=== PATIENT | male | born 1990 | race Caucasian/White ===

== ENCOUNTER 2020-01-29 05:50 | Emergency (ER) | payer MEDICAID, OTHER ==
[~2020-01-29] VITALS: Ht 177.8 cm; Wt 86.2 kg
[~2020-01-29 05:50] MED LIST: FLUO-387 PO
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
[2020-01-29 05:56] VITALS: BP 130/100
--- NOTE | 2020-01-29 06:01 | NUR ---
PT AMBULATORY TO ROOM 4
--- NOTE | 2020-01-29 06:02 | NUR ---
Patrick mendoza in [facility] - 01/29/20 at 0602 by [place] PT TAKEN TO BED 4
--- NOTE | 2020-01-29 06:05 | NUR ---
Dr. Hinds examining patient.
[2020-01-29] MEDS ORDERED: fentaNYL 0.05 MG/ML VIAL IVP ONE ×2 (06:10→06:40)
--- NOTE | 2020-01-29 06:24 | NUR ---
PT MEDICATED WITH FENTANYL IVP. TOLERATED WELL. ELOYR
[2020-01-29] MEDS ORDERED: LIDOCAINE MPF 1% 10 MG/ML VIAL INJ ONE (06:35)
[2020-01-29] MEDS ORDERED: LIDOCAINE MPF 1% 5 ML ONE (06:35)
--- NOTE | 2020-01-29 06:47 | NUR ---
PT STATES PAIN IN PENIS IS CURRENTLY 10. ERMD MADE AWARE AND GAVE NEW ORDER FOR FENTANYL 0.05MG IVP. PT CONTINUES ON PERMIT AGENT. VSS.
--- NOTE | 2020-01-29 06:57 | NUR ---
Dr. Gorman examining patient.
--- NOTE | 2020-01-29 07:10 | NUR ---
Dr. Gorman & Dr. Ambrocio at bedside evaluating pt/suturing wound
[2020-01-29] MEDS ORDERED: BACITRACIN OINT 500 UNITS/GM PKT TP ONE (07:30)
[2020-01-29] MEDS ORDERED: IBUPROFEN 400 MG TAB PO ONE (07:30)
[2020-01-29 07:52] VITALS: BP 124/97
--- NOTE | 2020-01-29 07:54 | NUR ---
Patient discharged with v/s stable. Written and verbal after care instructions given and explained. Patient alert, oriented and verbalized understanding of instructions. Ambulatory with steady gait. All questions addressed prior to discharge. ID band removed. Patient advised to follow up with PMD. Rx of naprosyn, bactrim, bacitracin given. Patient educated on indication of medication including possible reaction and side effects. Opportunity to ask questions provided and answered. Homeless resource packet and sack lunch provided to patient.
== END 2020-01-29 07:54 | disposition home or self-care (01) ==
LOC: MED 05:50
DX: N47.1 Phimosis (principal); Z79.899 Other long term (current) drug therapy
CPT/HCPCS: 90715; 96374; 96375; 99284; J2001; J3010

== ENCOUNTER 2020-01-31 09:03 | Emergency (ER) | payer OTHER ==
[~2020-01-31] VITALS: Ht 175.3 cm; Wt 97.1 kg
[2020-01-31 09:11] VITALS: BP 134/86
[2020-01-31] MEDS ORDERED: NACL 0.9% 1,000 ML IV ONE ×2 (09:20→10:15)
[2020-01-31] MEDS ORDERED: KETOROLAC 30 MG/ML VIAL IVP ONE (09:20)
[2020-01-31] MEDS ORDERED: SULFAMETH/TRIMETH DS 800/160MG 1 TAB PO ONE (09:20)
[2020-01-31] MEDS ORDERED: CEPHALEXIN 500 MG CAP PO ONE (09:20)
[2020-01-31] MEDS ORDERED: BACITRACIN OINT 500 UNITS/GM PKT TP ONE (09:21)
[2020-01-31] MEDS ORDERED: ONDANSETRON 4 MG/2 ML VIAL IVP ONE (09:25)
--- NOTE | 2020-01-31 09:30 | NUR ---
AMBULATED TO BED.
--- NOTE | 2020-01-31 09:35 | NUR ---
DR VILLAGOMEZ AT BEDSIDE EVALUATING PT.
[2020-01-31 09:48] LABS: BASOPHILS # (AUTO) 0.1 K/uL (0.00-0.22); BASOPHILS % (AUTO) 0.9 % (0.0-2.0); EOSINOPHILS % (AUTO) 0.1 % (0.0-4.0); HEMATOCRIT 43.6 % (36-52); HEMOGLOBIN 15.4 g/dL (12.0-18.0); LYMPHOCYTES % (AUTO) 18.1 % (20.5-51.1); MEAN CORPUSCULAR HEMOGLOBIN 33 pg (27-31); MEAN CORPUSCULAR HGB CONC 35 g/dL (33-37); MEAN CORPUSCULAR VOLUME 93.4 fL (80-94); MONOCYTES # (AUTO) 0.5 K/uL (0.8-1.0); MONOCYTES % (AUTO) 4.4 % (1.7-9.3); NEUTROPHILS # (AUTO) 8.6 K/uL (1.8-7.7); NEUTROPHILS % (AUTO) 76.5 % (42.2-75.2); PLATELET COUNT (AUTO) 274 K/uL (140-450); RED BLOOD CELL COUNT(AUTO) 4.67 MIL/uL (4.20-6.10); RED CELL DISTRIBUTION WIDTH 13.6 % (11.6-13.7); WHITE BLOOD COUNT (AUTO) 11.2 K/uL (4.8-10.8)
[2020-01-31 10:06] LABS: ALBUMIN 3.5 g/dL (3.4-5.0); CARBON DIOXIDE 31.1 mmol/L (21-32); CREATININE 0.7 mg/dL (0.6-1.3); POTASSIUM 3.1 mmol/L (3.5-5.1); TOTAL BILIRUBIN 0.6 mg/dL (0.0-1.0)
--- NOTE | 2020-01-31 10:10 | NUR ---
PT C/O PENIAL PAIN 02/27 , DENIES PMHX NOR RECENT INTAKE OF MEDS . PT AWAKE ,ALERT , AFIBRILE , AMBULATORY WITH STEADY GAIT , SCE , CBS, FLATSOFT NABS.
[2020-01-31] MEDS ORDERED: POTASSIUM CHLORIDE 10 MEQ TABER PO ONE (10:15)
--- NOTE | 2020-01-31 10:34 | NUR ---
PT COMFORTABLE IN BED WITH SIDE RAILS UP X1 AND LOCK.
--- NOTE | 2020-01-31 11:48 | NUR ---
pt in bed c/o vomiting , gave vomit bag .aox 4. side rails up and lock.
[2020-01-31 12:17] VITALS: BP 130/80
--- NOTE | 2020-01-31 12:17 | NUR ---
Patient discharged with v/s stable. Written and verbal after care instructions given and explained regarding alcohol intoxication. Patient alert, oriented and verbalized understanding of instructions. Ambulatory with steady gait. All questions addressed prior to discharge. ID band removed. Patient advised to follow up with PMD. Rx of bactirm and naprosyn given. Patient educated on indication of medication including possible reaction and side effects. Opportunity to ask questions provided and answered.Pt walk out after recieving paper works ,security at bedside , charge nurse informed.
== END 2020-01-31 12:17 | disposition home or self-care (01) ==
LOC: MED 09:03
DX: F10.129 Alcohol abuse with intoxication, unspecified (principal); E87.6 Hypokalemia; R74.0 Nonspecific elevation of levels of transaminase and lactic acid dehydrogenase [LDH]; Z79.899 Other long term (current) drug therapy; Z48.00 Encounter for change or removal of nonsurgical wound dressing
CPT/HCPCS: 36415; 80053; 83690; 85025; 96361; 96374; 96375; 99284; G0482; J1885; J2405; J7030

== ENCOUNTER 2020-05-14 20:39 | Emergency (ER) | payer OTHER ==
[~2020-05-14] VITALS: Ht 177.8 cm; Wt 97.5 kg
[2020-05-14 20:40] VITALS: BP 136/85
[2020-05-14 20:51] VITALS: BP 136/85
== END 2020-05-14 20:51 | disposition left against medical advice (07) ==
LOC: MED 20:39
DX: R51 Headache (principal); Z53.21 Procedure and treatment not carried out due to patient leaving prior to being seen by health care provider

== ENCOUNTER 2020-05-19 20:49 | Inpatient (IN) | payer OTHER, SELFPAY ==
[~2020-05-19] VITALS: Ht 170.2 cm; Wt 91.6 kg
[2020-05-19 20:54] VITALS: BP 151/89
--- NOTE | 2020-05-19 21:14 | NUR ---
PT TAKEN TO BED 6
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
--- NOTE | 2020-05-19 21:23 | NUR ---
COVID AND KATHIA ANTIGEN SWAB COLLECTED AND HANDED TO LAB.
--- NOTE | 2020-05-19 21:23 | NUR ---
URINE SAMPLE COLLECTED AND HANDED TO LAB.
--- NOTE | 2020-05-19 21:30 | NUR ---
LAB AT BEDSIDE.
--- NOTE | 2020-05-19 21:33 | NUR ---
Dr. Hinds examining patient.
[2020-05-19] MEDS ORDERED: ONDANSETRON 4 MG/2 ML VIAL IVP ONE (21:40)
[2020-05-19] MEDS ORDERED: busPIRone 5 MG TAB PO ONE (21:40)
[2020-05-19] MEDS ORDERED: OLANZapine 5 MG TAB PO ONE (21:40)
[2020-05-19] MEDS ORDERED: NACL 0.9% 1,000 ML IV ONE (21:40)
[2020-05-19] MEDS ORDERED: buPROPion 150 MG TABER PO ONE (21:40)
[2020-05-19] MEDS ORDERED: PANTOPRAZOLE 40 MG INJ VIAL IVP ONE (21:40)
[2020-05-19] MEDS ORDERED: MIRTAZAPINE 15 MG TAB PO ONE (21:40)
[2020-05-19 21:49] LABS: BASOPHILS # (AUTO) 0.1 K/uL (0.00-0.22); BASOPHILS % (AUTO) 0.6 % (0.0-2.0); EOSINOPHILS # (AUTO) 0.1 K/uL (0-0.4); EOSINOPHILS % (AUTO) 1.1 % (0.0-4.0); HEMATOCRIT 48.1 % (36-52); HEMOGLOBIN 16.9 g/dL (12.0-18.0); LYMPHOCYTES # (AUTO) 2.3 K/uL (2.0-11.5); LYMPHOCYTES % (AUTO) 22.9 % (20.5-51.1); MEAN CORPUSCULAR HEMOGLOBIN 33 pg (27-31); MEAN CORPUSCULAR HGB CONC 35 g/dL (33-37); MEAN CORPUSCULAR VOLUME 93.4 fL (80-94); MONOCYTES # (AUTO) 0.7 K/uL (0.8-1.0); MONOCYTES % (AUTO) 7.2 % (1.7-9.3); NEUTROPHILS # (AUTO) 6.7 K/uL (1.8-7.7); NEUTROPHILS % (AUTO) 68.2 % (42.2-75.2); PLATELET COUNT (AUTO) 301 K/uL (140-450); RED BLOOD CELL COUNT(AUTO) 5.15 MIL/uL (4.20-6.10); RED CELL DISTRIBUTION WIDTH 12.3 % (11.6-13.7); WHITE BLOOD COUNT (AUTO) 9.8 K/uL (4.8-10.8)
[2020-05-19 21:50] LABS: APPEARANCE,URINE CLOUDY (CLEAR); BILIRUBIN,URINE 3+ (NEGATIVE); BLOOD, URINE NEGATIVE (NEGATIVE); COLOR,URINE BROWN (YELLOW); LEUKOCYTE ESTERASE ,URINE NEGATIVE (NEGATIVE); NITRITE, URINE NEGATIVE (NEGATIVE); UGLUCOSE NEGATIVE (NEGATIVE)
--- NOTE | 2020-05-19 21:55 | NUR ---
CALLED JOURNEYMAN LEVEL ACOUSTIC ANALYST FOR PO MEDS, CURRENTLY NONE ARE IN EMERGENCY DEPARTMENT.
[2020-05-19 22:03] LABS: ANION GAP 17.5 (8-16); ASPARTATE AMINOTRANSFERASE 113 U/L (15-37); CARBON DIOXIDE 21.7 mmol/L (21-32); CHLORIDE 99 mmol/L (98-107); GFR ARICAN-AMERICAN 113 mL/min (>90); GLUCOSE 149 mg/dL (74-106); POTASSIUM 3.2 mmol/L (3.5-5.1); SODIUM SERUM 135 mmol/L (136-145); TOTAL BILIRUBIN 0.8 mg/dL (0.0-1.0); UREA NITROGEN, BLOOD 15 mg/dL (7-18)
[2020-05-19 22:04] LABS: SALICYLATE < 2.8 mg/dL (2.8-20.0)
[2020-05-19 22:05] LABS: ACETAMINOPHEN < 0.5 ug/ml (10-30)
[2020-05-19 22:06] LABS: BARBITURATE, URINE NEGATIVE ng/ml (NEG <=200); BENZODIAZEPINE, URINE POSITIVE ng/mL (NEG <=200); CANNABINOID, URINE POSITIVE ng/mL (NEG <=50); COCAINE, URINE NEGATIVE ng/mL (NEG <=300); PHENCYCLIDINE SCREEN,URINE NEGATIVE ng/mL (NEG <=25)
[2020-05-19 22:07] LABS: OPIATE, URINE NEGATIVE ng/mL (NEG <=2000)
[2020-05-19] MEDS ORDERED: POTASSIUM CHLORIDE 10 MEQ TABER PO ONE (22:10)
--- NOTE | 2020-05-19 22:11 | NUR ---
TELEPSYCH INITIATED PER DR. VILLAGOMEZ
[2020-05-19 22:45] LABS: RBC,URINE 0-5 /HPF (0-5); WBC,URINE 0-5 /HPF (0-5)
--- NOTE | 2020-05-19 23:10 | NUR ---
TELEPSYCH DOCTOR SPEAKING WITH PATIENT VIA REMOTE COMMUNICATION
--- NOTE | 2020-05-19 23:23 | NUR ---
PT SLEEPING IN BED, LOCKED AND IN LOWEST POSITION,HOB ELEVATED, SIDE RAIL X2 . VISIBLE RISE AND FALL OF CHEST , RR EVEN AND UNLABORED. SI PRECAUTIONS IN PLACE.
--- NOTE | 2020-05-20 00:58 | NUR ---
[place] [facility] AT BEDSIDE
--- NOTE | 2020-05-20 01:00 | NUR ---
[facility] faxed packet to deisgnated facilities [facility] At this time , there are no beds available , will endorsed to AM shift to continue to look for placement.
--- NOTE | 2020-05-20 01:12 | NUR ---
PT PLACED ON A 5150 HOLD BY ÁLVARO DOW
--- NOTE | 2020-05-20 02:26 | NUR ---
pt sleeping in bed, locked and in lowest position, rr even and unlabored, visible rise and fall of chest, arousable to verbal stimulation. Hob elevated, side rail x2 for pt safety. SI precautions in place. No acute distress noted at this time.
--- NOTE | 2020-05-20 04:01 | NUR ---
pt sleeping in bed, locked and in lowest position, rr even and unlabored, visible rise and fall of chest. No acute distress noted at this time. SI precautions in place.
--- NOTE | 2020-05-20 06:33 | NUR ---
pt sleeping in bed, locked and in lowest position, visible rise and fall of chest. SI precautions in place. No acute distress noted at this time.
[2020-05-20] MEDS ORDERED: KCL 20 MEQ/WATER INJ PREMIX 200 ML IV PRN (06:55)
[2020-05-20] MEDS ORDERED: POTASSIUM CHLORIDE 10 MEQ TABER PO PRN (06:55)
[2020-05-20] MEDS ORDERED: HYDROcodone/APAP 5/325 MG 1 TAB TAB PO PRN (06:55)
[2020-05-20] MEDS ORDERED: ZOLPIDEM 5 MG TAB PO PRN (06:55)
[2020-05-20] MEDS ORDERED: MAG SULF 2000 MG/WATER PREMIX 50 ML IV PRN (06:55)
[2020-05-20] MEDS ORDERED: MAGNESIUM OXIDE 400 MG TAB PO PRN (06:55)
[2020-05-20] MEDS ORDERED: IBUPROFEN 400 MG TAB PO PRN (06:55)
[2020-05-20] MEDS ORDERED: ONDANSETRON 4 MG/2 ML VIAL IVP PRN (06:55)
[2020-05-20] MEDS ORDERED: LORazepam 1 MG TAB PO PRN (06:55)
[2020-05-20] MEDS ORDERED: ACETAMINOPHEN 325 MG TAB PO PRN (06:55)
--- NOTE | 2020-05-20 07:13 | NUR ---
Report given to DILLON Chavez for transfer of care.
--- NOTE | 2020-05-20 07:33 | NUR ---
CC continuing to work on placement, no openings overnight.
--- NOTE | 2020-05-20 08:00 | NUR ---
Patient will be admitted to care of Dr. Ambrocio. Admited to Med Surg. Will go to room 109B. Belongings list completed. Report to Adeola CARRANZA.
--- NOTE | 2020-05-20 08:02 | NUR ---
RECEIVED THIS 29
--- NOTE | 2020-05-20 08:02 | NUR ---
RECEIVED THIS 29 YEAR OLD MALE, PER WHEELCHAIR FROM ER, AWAKE, ALERT, ORIENTEDX3, BREATHING SPONTANEOUSLY AT ROOM AIR, NON LABORED BREATHING NOTED,WITH IV CANNULA G18 AT LEFT AC ON SALINE LOCK NOTED. ADMITTED A CASE OF SUICIDAL IDEATION 5150, WITH SITTER 1:1. SAFETY MEASURES IN PLACE AND CONTINUE MONITOR.
--- NOTE | 2020-05-20 08:35 | NUR ---
PATIENT HAS BEEN SCREENED AND CATEGORIZED LOW NUTRITION RISK. PATIENT WILL BE SEEN WITHIN 7 DAYS OF ADMISSION. 05/26/[address]
--- NOTE | 2020-05-20 09:12 | NUR ---
DISCHARGE PLANNING: PAULA CONTACTED [facility] TO VERIFY IF 5150 AND CLINICALS WERE RECEIVED FOR PATIENT. PAULA SPOKE WITH NASIM [phone]. NASIM STATED SHE IS NOT YET IN CALL CENTER AND WILL CONTACT PAULA ONCE SHE ARRIVES. Addendum: 05/20/20 at 1116 by Eyad Tovar PAULA CONTACTED DILLON RODRIGUEZ REGARDING IF PATIENT IS MEDICALLY CLEARED FOR TRANSFER. PER JENNIFER, PATIENT IS PENDING LABS AND IS NOT MEDICALLY CLEARED FOR TRANSFER. PAULA CONTACTED NASIM FROM [facility] [phone] AND INFORMED HER. NASIM VERBALIZED APPRECIATION. Addendum: 05/20/20 at 1329 by Eyad Tovar PAULA CONTACTED [facility] AND SPOKE TO BOARDER MACHINE/COORDINATOR DARWIN [phone]. PAULA NOTIFIED DARWIN THAT PATIENT IS NOT MEDICALLY CLEARED FOR TRANSFER TO PSYCH FACILITY. DARWIN STATED THAT BUILDING MAINTENANCE CUSTODIAN WOULD CONTACT [facility] REGARDING CASE. Addendum: 05/21/20 at 0913 by Eyad MAI PAULA CONTACTED DILLON RODRIGUEZ TO SEE IF PATIENT IS MEDICALLY STABLE FOR TRANSFER. JENNIFER STATED SHE WOULD FOLLOW UP WITH PAULA AFTER CONSULTING WITH PHYSICIAN. Addendum: 05/21/20 at 0959 by Eyad MAI PAULA CONTACTED [facility] AND SPOKE TO NASIM [phone]. PAULA INFORMED NASIM THAT PATIENT IS NOW MEDICALLY CLEARED FOR TRANSFER TO PSYCHIATRIC FACILITY. NASIM STATED SHE WOULD BEGIN LOOKING FOR PLACEMENT FOR PATIENT. Addendum: 05/22/20 at 1229 by Eyad Tovar SS SW CONTACTED [facility] AND SPOKE TO ART [phone] REGARDING PSYCH PLACEMENT. PER ART, THERE IS NO BED AVAILABILITY. SW WILL FOLLOW UP NEEDED.
[2020-05-20] MEDS: DOCUSATE SODIUM 100 MG GELCAP PO SCH (09:50)
[2020-05-20] MEDS: buPROPion 75 MG TAB PO SCH (09:50)
[2020-05-20] MEDS: busPIRone 5 MG TAB PO SCH (09:50)
--- NOTE | 2020-05-20 09:56 | NUR ---
AWAKE AND CALMED. DUE MEDICATION GIVEN. MRSA NARES SWAB DONE AND SENT TO LAB.
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
--- NOTE | 2020-05-20 11:24 | NUR ---
Received call from Aircraft Skin Burnisher Jaylen. Per Jaylen, patient is not medically clear. [facility] will resume finding placement once patient is cleared.
--- NOTE | 2020-05-20 12:20 | NUR ---
APPARENTLY SLEEPING, NON IN DISTRESS NOTED
--- NOTE | 2020-05-20 14:26 | NUR ---
AWAKE AND ALERT,NO SIGNS OF HALLUCINATION NOTED
[2020-05-20 15:01] VITALS: BP 108/62
--- NOTE | 2020-05-20 16:21 | NUR ---
TO TOILET AMBULATORY, VOIDED FREELY CLAIMED. VERBALIZED HE IS HUNGRY, TUNA SANDWICH AND ORANGE JUICE SERVED.
--- NOTE | 2020-05-20 18:08 | NUR ---
DINNER SERVED, CONSUMED 100% OF FOOD SERVED.
--- NOTE | 2020-05-20 19:28 | NUR ---
ENDORSED TO BARREL PLANER IN STABLE CONDITION FOR CONTINUITY OF CARE.
--- NOTE | 2020-05-20 19:29 | NUR ---
BEDSIDE ENDORSEMENT RECEIVED FROM DILLON POLANCO. AOX4, ON ROOM AIR, NO DISTRESS, WITH 1:1 SITTER FOR S.I. AMBULATORY. SAFETY MEASURES IN PLACE PLAN OF CARE DISCUSSED. CALL LIGHT WITHIN REACH. WILL MONITOR.
[2020-05-20] MEDS ORDERED: OLANZapine 5 MG TAB PO SCH (21:00)
[2020-05-20] MEDS: MIRTAZAPINE 15 MG TAB PO SCH (21:09)
--- NOTE | 2020-05-20 21:10 | NUR ---
DUE MEDS GIVEN ORDERED, TOLERATED WELL.
--- NOTE | 2020-05-20 23:30 | NUR ---
SLEEPING, CONTINUE ON 1:1 SITTER.
[2020-05-21] VITALS: BP 102/62
--- NOTE | 2020-05-21 01:16 | NUR ---
RESPIRATION EVEN AND UNLABORED, NO SOB, CALL LIGHT WITHIN REACH.
--- NOTE | 2020-05-21 03:30 | NUR ---
CONTINUE ON 1:1 SITTER, PATIENT SHOWED NO SIGN OF S.I., ASLEEP.
--- NOTE | 2020-05-21 06:51 | NUR ---
NO DISTRESS, NO SOB, DENIES PAIN, ALL NEEDS ATTENDED, KEPT COMFORTABLE, IN STABLE CONDITION, CALL LIGHT WITHIN REACH.
[2020-05-21 07:11] LABS: ANION GAP 6.7 (8-16); CARBON DIOXIDE 27.6 mmol/L (21-32); CREATININE 0.9 mg/dL (0.6-1.3); POTASSIUM 3.3 mmol/L (3.5-5.1)
--- NOTE | 2020-05-21 07:27 | NUR ---
PATIENT IN STABLE CONDITION. BEDSIDE ENDORSEMENT GIVEN TO AM SHIFT RN FOR CONTINUITY OF CARE.
--- NOTE | 2020-05-21 07:30 | NUR ---
RECEIVED PATIENT FROM NIGHT NURSE. PATIENT IN BED, AWAKE, ALERT AND ORIENTED X4. PATIENT DENIES OF PAIN OR DISTRESS AT THIS TIME. RESP EVEN AND UNLABORED ON ROOM AIR. DENIES OF ANY SUICIDAL IDEATIONS AT THIS TIME. SITTER BY BED SIDE. PLAN OF CARE DISCUSSED WITH PATIENT, PATIENT VERBALIZED UNDERSTANDING. WILL CONTINUE TO MONITOR.
[2020-05-21 08:00] VITALS: BP 106/68
[2020-05-21] MEDS ORDERED: MIRT15TA4 PO (08:50)
[2020-05-21] MEDS ORDERED: BUPR75TA3 PO (08:50)
[2020-05-21] MEDS ORDERED: PANT40EC56 PO (08:50)
[2020-05-21] MEDS ORDERED: BUS5 PO (08:50)
[2020-05-21] MEDS ORDERED: OLAN5TAB30 PO (08:50)
[2020-05-21] MEDS: busPIRone 5 MG TAB PO SCH (08:54)
[2020-05-21] MEDS: buPROPion 75 MG TAB PO SCH (08:54)
[2020-05-21] MEDS: PANTOPRAZOLE 40 MG TABEC PO SCH (08:54)
[2020-05-21] MEDS: DOCUSATE SODIUM 100 MG GELCAP PO SCH (08:55)
--- NOTE | 2020-05-21 09:00 | NUR ---
MORNING ROUTINE MEDICATIONS GIVEN. PATIENT IN BED COMFORTABLE. AWAKE AND ALERT. ABLE TO MAKE NEEDS KNOWN. RAC 18 INTACT AND PATENT, SL. DENIES OF PAIN AT THIS TIME. NO SUICIDAL IDEATION REPORTED. SITTER BY BEDSIDE. WILL CONTINUE TO MONITOR.
--- NOTE | 2020-05-21 10:51 | NUR ---
PATIENT SLEEPING IN BED. RESP EVEN AND UNLABORED ON ROOM AIR, CHEST RISING. NO NOTED ACUTE S/S OF DISTRESS. 1:1 SITTER BY BED SIDE. WILL CONTINUE TO MONITOR.
--- NOTE | 2020-05-21 12:25 | NUR ---
DISCHARGE PLANNING: SPOKE TO ZELDA AT [facility], INFORMED HER THAT PATIENT IS MEDICALLY CLEARED NOW AND WE ARE FINDING A PYSCH PLACEMENT AND IF THEY CAN HELP WITH THE PLACEMENT WELL. SHE STATED SHE WILL LET THE RN KNOW. PROVIDED HER OF MY CONTACT INFO.
--- NOTE | 2020-05-21 13:11 | NUR ---
[facility]
--- NOTE | 2020-05-21 13:12 | NUR ---
[facility]: Will continue looking for placement in surrounding [facility] facilities
--- NOTE | 2020-05-21 13:20 | NUR ---
PATIENT IN BED RESTING COMFORTABLY. DENIES OF PAIN AT THIS TIME. RESP EVEN AND UNLABORED ON ROOM AIR. 1:1 SITTER AT BEDSIDE. PATIENT IS ABLE TO MAKE NEEDS KNOWN. WILL CONTINUE TO MONITOR.
[2020-05-21 16:00] VITALS: BP 114/76
--- NOTE | 2020-05-21 16:04 | NUR ---
CC Packet refaxed to the following facilities for review: [facility]
--- NOTE | 2020-05-21 16:05 | NUR ---
PATIENT AMBULATED TO THE SHOWER WITH STEADY GAIT. DENIES OF PAIN OR SOB. RESP EVEN AND UNLABORED ON ROOM AIR. PATIENT DENIES OF ANY SUICIDAL IDEATION AT THIS TIME. 1:1 SITTER AT BEDSIDE. WILL CONTINUE TO MONITOR.
[2020-05-21] MEDS: OLANZapine 5 MG TAB PO SCH ×2 (16:11→20:25)
--- NOTE | 2020-05-21 19:25 | NUR ---
RECEIVED CONTINUITY OF CARE FROM A NURSE. PT IS SLEEPING IN BED. VISIBLE CHEST RISE NOTED. 1:1 SITTER NOTED AT BEDSIDE.
--- NOTE | 2020-05-21 19:29 | NUR ---
PATIENT SLEEPING IN BED. NO ACUTE S/S OF DISTRESS AT THIS TIME. 1:1 SITTER BY BEDSIDE. ENDORSED PATIENT TO NIGHT NURSE. PATIENT IN STABLE CONDITION. Addendum: 05/21/20 at 1932 by Sharla Whitaker RN NO SUICIDAL IDEATIONS AT THIS TIME.
--- NOTE | 2020-05-21 20:06 | NUR ---
Called the following the following facilities [facility]-no answer [facility] There are still no available beds
[2020-05-21] MEDS: MIRTAZAPINE 15 MG TAB PO SCH (20:25)
--- NOTE | 2020-05-21 21:06 | NUR ---
ADMINISTERED SCHEDULED MEDICATION, INCLUDING AMBIEN PER PT REQUEST. EDUCATION WAS GIVEN. PT ASKED ABOUT GOING TO A FACILITY. EDUCATED PT THAT NO FACILITY HAS BEEN FOUND TO ACCEPT HIM YET. NO SUICIDAL IDEATION AT THIS TIME. Addendum: 05/22/20 at 0513 by Howard Amador RN PT IS [id number]. SKIN IS WARM, DRY, INTACT.
--- NOTE | 2020-05-21 23:05 | NUR ---
PT IS SLEEPING. NO SIGNS OF DISTRESS NOTED. 1:1 SITTER AT BEDSIDE.
[2020-05-22] VITALS: BP 107/64
--- NOTE | 2020-05-22 01:04 | NUR ---
PT IS SLEEPING. NO SIGNS OF DISTRESS NOTED. 1:1 SITTER AT BEDSIDE.
--- NOTE | 2020-05-22 03:02 | NUR ---
PT IS SLEEPING. NO SIGNS OF DISTRESS NOTED.
--- NOTE | 2020-05-22 05:07 | NUR ---
PT IS SLEEPING. NO SIGNS OF DISTRESS NOTED.
--- NOTE | 2020-05-22 07:36 | NUR ---
Change of shift report given. Will continue to assist with bed placement
--- NOTE | 2020-05-22 07:52 | NUR ---
ENDORSED CARE TO AM NURSE. PT IS IN STABLE CONDITION.
--- NOTE | 2020-05-22 07:55 | NUR ---
RECEIVED REPORT FROM AM NURSE ALYSSA BAEZ IS AMBULATORY, ROOM AIR AND SLEEPING, SKIN INTACT, SAFETY MEASURES IN PLACE AND CALL LIGHT WITHIN REACH. WILL CONTINUE TO MONITOR.
[2020-05-22 08:00] VITALS: BP 108/51
[2020-05-22] MEDS: OLANZapine 5 MG TAB PO SCH (08:46)
[2020-05-22] MEDS: PANTOPRAZOLE 40 MG TABEC PO SCH (08:46)
[2020-05-22] MEDS: DOCUSATE SODIUM 100 MG GELCAP PO SCH (08:46)
[2020-05-22] MEDS: busPIRone 5 MG TAB PO SCH (08:47)
[2020-05-22] MEDS: buPROPion 75 MG TAB PO SCH (08:47)
--- NOTE | 2020-05-22 08:51 | NUR ---
MEDICATION DUE GIVEN AT THIS TIME, CHECK VITAL SIGNS BP 108/51 CA 87, NO DISTRESS NOTED AND DENIES PAIN. SAFETY MEASURES IN PLACE AND CALL LIGHT WITHIN REACH. WILL CONTINUE TO MONITOR.
--- NOTE | 2020-05-22 09:17 | NUR ---
Received report. [facility] still working on placement at this time.
--- NOTE | 2020-05-22 11:30 | NUR ---
MADE ROUNDS AT THIS TIME,PATIENT IS SLEEPING, NO DISTRESS NOTED, DENIES PAIN , 1:1 SITTER, SAFETY MEASURES IN PLACE CALL LIGHT WITHIN REACH. WILL CONTINUE TO MONITOR.
--- NOTE | 2020-05-22 14:30 | NUR ---
PATIENT IS BEING DISCHARGE TO HOME AT THIS TIME PER DOCTORS ORDER.
[2020-05-22 16:00] VITALS: BP 110/69
--- NOTE | 2020-05-22 17:00 | NUR ---
PATIENT SIGNED DISCHARGED PAPERS AND INSTRUCTED ON HIS MEDICATION, GAVE BUS PASS.
--- NOTE | 2020-05-22 17:35 | NUR ---
DISCHARGED INSTRUCTIONS GIVEN TO PATIENT AT THE BEDSIDE ENCOURAGED PATIENT TO CONTINUE MEDICATIONS AND INSTRUCTED TO FOLLOW UP WITH PCP AFTER 1 WEEK OF DISCHARGE, AND INSTRUCTED PATIENT TO SEEK MEDICAL HELP INCASE OF MEDICAL EMERGENCIES, IV SITES INTACT AND COMPLETE NO BLEEDING ON THE IV SITES. ANSWERED ALL PATIENTS QUESTION AND VERBALIZES UNDERSTANDING. GAVE PT BUS PASS. PATIENT CHANGED TO HIS OWN CLOTHES AND TOOK ALL HIS BELONGINGS. ESCORTED PATIENT TO THE FRONT LOBBY, PATIENT IS DISCHARGE TO HOME. PT IS STABLE.
== END 2020-05-22 17:35 | disposition home or self-care (01) | DRG 750 ==
LOC: MED 20:49 → MTU 05-20 07:14
PROVIDERS: ADMIT Internal Medicine; ATTEND Internal Medicine
DX: F20.9 Schizophrenia, unspecified (principal); F29 Unspecified psychosis not due to a substance or known physiological condition; R45.851 Suicidal ideations; F22 Delusional disorders; Z20.828 Contact with and (suspected) exposure to other viral communicable diseases; F17.210 Nicotine dependence, cigarettes, uncomplicated; E87.5 Hyperkalemia; F10.20 Alcohol dependence, uncomplicated; Y90.0 Blood alcohol level of less than 20 mg/100 ml; F32.9 Major depressive disorder, single episode, unspecified; F12.10 Cannabis abuse, uncomplicated; F13.10 Sedative, hypnotic or anxiolytic abuse, uncomplicated; K29.70 Gastritis, unspecified, without bleeding; Z91.14 Patient's other noncompliance with medication regimen; Z59.0 Homelessness
CPT/HCPCS: 36415; 80048; 80053; 80305; 81001; 83690; 83735; 85025; 87081; 96361; 96374; 96375; 99285; C9113; G0480; G0482; J2405; U0003-CS